=== PATIENT | male | born 1955 | race African-American/Black ===

== ENCOUNTER 2020-07-17 09:51 | Outpatient (CLI) | payer OTHER, SELFPAY ==
--- NOTE | ~2020-07-17 | CT_ITS ---
CT lung screening DATE: 07/17/2020 10:43 INDICATION: Lung cancer screening. Emphysema. TECHNIQUE: Axial CT images through the lungs without intravenous contrast material. Exam dose: 79.97 mGy-cm total exam DLP. COMPARISON: None FINDINGS: There is bilateral mild apical scarring. Moderately prominent emphysematous changes are noted, most prominent in the upper lobes, including bi lateral upper lobe and superior segment left lower lobe bullae. 7 mm groundglass density, right apical area (series 4 image 21) 1.7 mm nodular density, right upper lobe (series 4 image 60). 2 mm perihilar nodular density, right upper lobe (series 4 image 69) 3.4 mm pleura-based opacity, anterolateral right lower lobe (series 4 image 78). 4.5 mm right lower lobe noncalcified soft tissue nodule (series 4 image 83). 4.9 mm pleural-based nodule, left lower lobe (series 4 image 81) There are several small likely benign left greater fissural nodes. Normal heart size. No pericardial or pleural effusion. Normal size and homogeneous attenuation of the thyroid gland. No hilar or mediastinal mass lesion or lymphadenopathy. Thoracic aortic, great vessel and coronary artery calcifications. No pericardial or pleural effusion. Normal morphology of the adrenal glands. IMPRESSION: Lung RADS score 3: probably benign Recommendation: 6 month follow-up LDCT imaging Reviewed, dictated and finalized at [facility]. Reviewed, dictated and finalized at location A.
--- NOTE | ~2020-07-17 | US_ITS ---
EXAMINATION: US aorta [facility] DATE: 07/17/2020 10:39 INDICATION: Screening for abdominal aortic aneurysm with risk factors of cardiovascular disease, hype rtension, smoking and hypercholesterolemia. TECHNIQUE: Grayscale, color Doppler, and pulsed Doppler images of the aorta and common iliac arteries were obtained. COMPARISON: None. FINDINGS: The proximal aorta measures 2.4 x 2.8 cm. The mid aorta measures 2.1 x 2.1 cm. The distal aorta measu res 1.5 x 1.7 cm. The right common iliac artery measures 10 mm. The left common iliac artery measures 11 mm. IMPRESSION: 1. Normal caliber abdominal aorta. Reviewed, dictated and finalized at location [facility].
== END 2020-07-17 09:52 | disposition home or self-care (01) ==
PROVIDERS: PCP Family Medicine; Visit Provider Family Medicine
DX: Z12.2 Encounter for screening for malignant neoplasm of respiratory organs (principal); Z87.891 Personal history of nicotine dependence; R91.8 Other nonspecific abnormal finding of lung field
CPT/HCPCS: 71271; 76706

== ENCOUNTER → 2020-07-27 00:19 | Outpatient (CLI) | payer OTHER, SELFPAY ==
[2020-07-27 18:31] LABS: SARS-CoV-2 RNA PCR Negative
== END ==
PROVIDERS: PCP Family Medicine; Visit Provider Internal Medicine Gastroenterology
DX: Z01.812 Encounter for preprocedural laboratory examination (principal); Z20.822 Contact with and (suspected) exposure to COVID-19
CPT/HCPCS: C9803; U0003; U0005

== ENCOUNTER 2020-07-30 04:13 | Day surgery (SDC) | payer OTHER, SELFPAY ==
[2020-07-19 10:22] VITALS: BMI 25.2
[2020-07-30 06:47] VITALS: BP 137/84; PULSE 73; RESP 20; TEMP 36.2; O2SAT 96; BMI 25.2
[2020-07-30] MEDS: LACTATED RINGERS 1,000 ML 150 ML IV CONT (07:03)
--- NOTE | 2020-07-30 07:12 | P.PNAN_ITS ---
Anes - Initial Pre Proc Eval Procedure: Operation Date: 07/30/20 08:00 Proposed Procedures p Screening Colonoscopy - Moncho Quinn MD Date/Time: 07/30/20 07:12 Surgeon: Moncho Quinn MD Pre Op Diagnosis: Neoplasm Screening Patient Data Age: 64 Gender: M Height: 5 ft 6 in Weight: 70.9 kg Last Vital Signs Temp 97.1 F L 07/30/20 06:47 Pulse 73 07/30/20 06:47 Resp 20 07/30/20 06:47 BP 137/84 07/30/20 06:47 Pulse Ox 96 07/30/20 06:47 Allergies Allergy/AdvReac Type Severity Reaction Status Date / Time citric acid Allergy Mild Hives Verified 07/30/20 06:46 tomato Allergy Mild Hives Verified 07/30/20 06:46 [place] Allergy Mild Hives Uncoded 07/19/20 10:22 NKDA Allergy Unknown Unknown Uncoded 07/19/20 10:22 Home Medications Medication Instructions Recorded Confirmed Type allopurinol 300 mg PO EVERY OTHER DAY 07/19/20 07/30/20 History ibuprofen 600 mg PO DAILY PRN 07/19/20 07/19/20 History lisinopril-hydrochlorothiazide 1 tablet PO DAILY 07/19/20 07/30/20 History Patient hx anesthesia problems: none Family hx anesthesia problems: none PMFSH Past Medical History Medical History Essential (primary) hypertension Idiopathic gout Surgical History Surgical History No pertinent past surgical history Family History Family History Father Acute leukemia Mother Hypertension Social History Social History Smoking packs per day: 1 Smoking cigarettes per day: 20.0 Years smoked: 40 Smoking pack-years: 40.00 Smoking status: Current every day smoker Tobacco type: cigarettes Second hand tobacco smoke exposure: Yes Alcohol intake: current Substance use: never Substance use type: does not use Living arrangements: with family Spiritual care concerns: No Anes - Eval Final PreProcedure Day of Procedure 07/30/20 07:12 Patient weight: normal Heart: regular rate and rhythm Lungs: clear to auscultation Airway: Mallampati scale Neurological: alert and oriented Last oral intake: >/= 8 hours ASA classification: II Emergent: no Anesthetic plan: proceed Anesthesia type and monitoring: general GIVS and standard monitoring Informed Consent: The patient's anesthetic plan and its attendant risks and benefits were discussed with the patient/family/POA. Questions were solicited and answers provided to the satisfaction of the patient/family/POA.
--- NOTE | 2020-07-30 07:16 | PM.HPGS ---
History of Present Illness History of Present Illness Consent: Risks, benefits, and alternatives have been discussed and questions answered. Patient agrees to proceed with procedure. Chief complaint: Neoplasm Screening Narrative: Scott Streeter is a 64 year old male Referred for colon cancer screening. This is his 1st colonoscopy. Review of Systems Review of Systems: All systems reviewed & are unremarkable except as noted in HPI and below PMFSH Past Medical History Medical History Essential (primary) hypertension Idiopathic gout Surgical History Surgical History No pertinent past surgical history Family History Family History Father Acute leukemia Mother Hypertension Social History Social History Smoking packs per day: 1 Smoking cigarettes per day: 20.0 Years smoked: 40 Smoking pack-years: 40.00 Smoking status: Current every day smoker Tobacco type: cigarettes Second hand tobacco smoke exposure: Yes Alcohol intake: current Substance use: never Substance use type: does not use Living arrangements: with family Spiritual care concerns: No Meds Home Medications and Allergies Home Medications Medication Instructions Recorded Confirmed Type allopurinol 300 mg PO EVERY OTHER DAY 07/19/20 07/30/20 History ibuprofen 600 mg PO DAILY PRN 07/19/20 07/19/20 History lisinopril-hydrochlorothiazide 1 tablet PO DAILY 07/19/20 07/30/20 History Allergies Allergy/AdvReac Type Severity Reaction Status Date / Time citric acid Allergy Mild Hives Verified 07/30/20 06:46 tomato Allergy Mild Hives Verified 07/30/20 06:46 [place] Allergy Mild Hives Uncoded 07/19/20 10:22 NKDA Allergy Unknown Unknown Uncoded 07/19/20 10:22 Vital Signs Vital Signs - 24 hr 07/30/20 06:47 Temperature 36.2 C L Pulse Rate 73 Respiratory Rate 20 Blood Pressure 137/84 Pulse Oximetry 96 Exam Const: General: alert Orientation/consciousness: patient oriented x3 Resp: Auscultation: clear to auscultation bilaterally Cardio: Rhythm: regular rhythm GI: GI Palp: Yes Soft to palpation and No Tenderness to palpation present (GI) Neuro: General: patient oriented x3 Assessment and Plan Assessment and plan (1) Colon cancer screening: Code(s): Z12.11 - Encounter for screening for malignant neoplasm of colon Status: Acute Assessment and Plan: Colonoscopy with possible biopsy or polypectomy or cautery or injection of substances.
[2020-07-30 08:30] VITALS: BP 110/78; PULSE 63; RESP 29; O2SAT 100
[2020-07-30 08:40] VITALS: BP 158/91; PULSE 57; RESP 20; O2SAT 100
[2020-07-30 08:50] VITALS: BP 164/94; PULSE 56; RESP 21; O2SAT 100
== END 2020-07-30 09:08 | disposition home or self-care (01) ==
PROVIDERS: PCP Family Medicine; Visit Provider Internal Medicine Gastroenterology
PROC: 0DJD8ZZ Inspection of Lower Intestinal Tract, Via Natural or Artificial Opening Endoscopic (ICD-10-PCS; CPT 45378; principal; 2020-07-30 08:00)
DX: Z12.11 Encounter for screening for malignant neoplasm of colon (principal); I10 Essential (primary) hypertension; M10.9 Gout, unspecified; F17.210 Nicotine dependence, cigarettes, uncomplicated
CPT/HCPCS: G0121; C9803; J2001; J2704; J7120; U0003; U0005

== ENCOUNTER 2020-10-11 06:55 | Outpatient (CLI) | payer OTHER, SELFPAY ==
--- NOTE | ~2020-10-11 | NM_ITS ---
EXAMINATION: NM bone scan whole body DATE: 10/11/2020 12:23 INDICATION: Prostate cancer TECHNIQUE: 27.9 mCi Tc-99m HDP was administered intravenously. Delayed whole-body scintigrams were o btained. COMPARISON: CT abdomen and pelvis dated 10/11/2020, CT chest dated 07/17/2020 FINDINGS: Likely degenerative joint centered uptake at the right elbow and bilateral wrists. Mild S-shaped curv ature of the spine with mild thoracic levocurvature and mild lumbar dextrocurvature. Mild likely dege nerative disc centered uptake at C7-T1 and L5-S1 with associated degenerative endplate changes seen o n prior CT. Millimeters suspicious foci of abnormal bone uptake to suggest metastatic disease. IMPRESSION: 1. No evident metastatic disease. Reviewed, dictated and finalized at location [facility].
--- NOTE | ~2020-10-11 | XR_ITS ---
EXAMINATION: XR chest 2V 10/11/2020 07:17 INDICATION: Prostate cancer PROCEDURE: PA and lateral views of the chest COMPARISON: No prior studies for comparison. FINDINGS: The lungs are clear. The cardiomediastinal silhouette is within normal limits. There are no pleural effusions. There is no pneumothorax suspected. There are bilateral nipple shadows. The l ungs are hyperinflated which is consistent with, but not diagnostic of chronic obstructive pulmonary disease. IMPRESSION: 1: NO ACUTE CARDIOPULMONARY DISEASE. Reviewed, dictated and finalized at location [facility].
--- NOTE | ~2020-10-11 | CT_ITS ---
EXAMINATION: CT abdomen pelvis w con EXAM DATE: 10/11/2020 07:33 INDICATION: Prostate cancer. TECHNIQUE: Spiral CT of the abdomen and pelvis was performed following intravenous injection of 100 m L Omnipaque 350. Axial, coronal and sagittal images of the abdomen and pelvis were reviewed. The do se-length product (DLP) for this examination was 337.37 mGy-cm. The exposure was tailored according to patient size (auto mA exposure control), and iterative reconstruction (ASIR) was used as additiona l dose reduction technique. Correlation is made to bone scan obtained same date. FINDINGS: The liver, spleen, adrenal glands and pancreas are unremarkable. Gallbladder is unremarkab le. No biliary obstruction. Portal and splenic veins are patent. Kidneys enhance symmetrically. T here is no hydronephrosis. There is mild prostatomegaly. The bladder is unremarkable. There is no retroperitoneal or pelvic lymphadenopathy. The appendix is normal. The stomach and small bowel are unremarkable. There is expected amount of c olonic stool. No free intraperitoneal gas. The heart is normal in size. There are no pericardial or pleural effusions. Mild basilar emphysema. Moderate to severe disc disease L3-4 and L5-S1. Ther e are no osteoblastic or osteolytic lesions identified. IMPRESSION: 1. No evidence of metastatic disease. 2. Mild prostatomegaly. Reviewed, dictated and finalized at location B.
[2020-10-11 07:25] LABS: Estimated Glomerular Filt Rate > 60
== END 2020-10-11 06:56 | disposition home or self-care (01) ==
PROVIDERS: PCP Family Medicine; Visit Provider Urology
DX: C61 Malignant neoplasm of prostate (principal)
CPT/HCPCS: 71046; 74177; 78306; A9561; Q9967

== ENCOUNTER 2020-12-16 06:58 | Outpatient (CLI) | payer OTHER, SELFPAY ==
--- NOTE | ~2020-12-16 | MR_ITS ---
EXAMINATION: MR pelvis wo/w con DATE: 12/16/2020 08:15 INDICATION: Malignant neoplasm of the prostate TECHNIQUE: Magnetic resonance imaging (MRI) of the pelvis w without and with 13 mL Multihance as perf ormed without intravenous contrast. [place] sequences of the pelvis included axial and coronal T2-w eighted SS FSE, axial, sagittal and coronal 2D FIESTA, axial 2D FIESTA FS, axial SSFSE-IR ELKE, axial dual-echo T1-weighted FSPGR, axial and coronal T1 weighted LAVA, 3D axial T2 Cube, axial diffusion-w eighted SE with apparent diffusion coefficient (ADC) maps. Postcontrast sequences included a time co urse axial T1-weighted LAVA and sagital and coronal T1-weighted LAVA. COMPARISON: CT dated 10/11/2020 FINDINGS: Prostate measures 4.6 x 3.6 x 4.5 cm. No evident extracapsular soft tissue in the surrounding fat. Co llection of relatively homogeneous T2 hyperintense material likely representing hydrogel situated bet ween the prostate and the anterior perirectal fat. The collection measures 3.3 cm craniocaudally, 2.7 cm left right and 1.3 cm in maximal thickness. Bladder and visualized bowels are unremarkable. No pa thologically enlarged pelvic or inguinal lymphadenopathy. Moderate to severe lower lumbar spondylosis . Normal bone marrow signal with no suspicious bone lesions identified. IMPRESSION: 1. No evident metastatic disease in the pelvis. Reviewed, dictated and finalized at location [facility].
[2020-12-16 07:33] LABS: Estimated Glomerular Filt Rate > 60
== END 2020-12-16 06:59 | disposition home or self-care (01) ==
PROVIDERS: PCP Family Medicine; Visit Provider Radiology Radiation Oncology
DX: C61 Malignant neoplasm of prostate (principal)
CPT/HCPCS: 72197; A9577

== ENCOUNTER 2021-06-28 14:10 | Outpatient (CLI) | payer OTHER, SELFPAY ==
[2021-06-28 14:34] LABS: Basophils Percent Auto 0.7 % (0.2-1.2); Eosinophils Absolute Auto 0.2 K/mm3 (0-0.3); Eosinophils Percent Auto 3.8 % (0-4.4); Hematocrit 34.1 % (42.0-52.0); Hemoglobin 11.2 g/dL (14.0-18.0); Immature Granulocyte Absolute 0.01 K/mm3 (0.00-0.031); Immature Granulocyte Percent A 0.2 % (0-0.5); Lymphocytes Absolute Auto 1.05 K/mm3 (0.9-3.2); Lymphocytes Percent Auto 24.8 % (18.3-44.2); Mean Corpuscular HGB Conc 32.8 g/dl (32-36); Mean Corpuscular Hemoglobin 28.9 pg (26-34); Mean Corpuscular Volume 88.1 fl (80-100); Mean Platelet Volume 8.3 fl (7.4-10.4); Monocytes Absolute Auto 0.3 K/mm3 (0.1-0.6); Monocytes Percent Auto 7.8 % (2.6-8.5); Neutrophils Absolute Auto 2.7 K/mm3 (1.3-6.7); Neutrophils Percent Auto 62.7 % (45.5-73.1); Platelet Count Result 278 k/mm3 (150-375); Red Blood Count 3.87 M/mm3 (4.6-6.20); Red Cell Distribution Width 13.2 % (11.5-14.5); White Blood Count 4.2 K/mm3 (4.5-10.0)
[2021-06-28 14:47] LABS: Alanine Aminotransferase 20 U/L (4-50); Albumin Level 4.5 g/dL (3.5-5.1); Alkaline Phosphatase 130 U/L (38-126); Anion Gap 6 mmol/L (8-16); Aspartate Amino Transferase 32 U/L (17-59); Bilirubin,Total 0.3 mg/dL (0.2-1.3); Blood Urea Nitrogen 23 mg/dL (9-20); Calcium 9.5 mg/dL (8.4-10.2); Carbon Dioxide 26 mmol/L (22-30); Chloride 107 mmol/L (98-107); Cholesterol 172 mg/dL (0-200); Estimated Glomerular Filt Rate > 60; Glucose 113 mg/dL (65-110); HDL Direct 41 mg/dL; Potassium 3.7 mmol/L (3.4-5.0); Sodium 139 mmol/L (137-145); Triglycerides 126 mg/dL (<150)
[2021-06-28 14:58] LABS: LDL Cholesterol Direct 99 mg/dL
== END 2021-06-28 14:11 | disposition home or self-care (01) ==
PROVIDERS: PCP Family Medicine; Visit Provider Family Medicine
DX: E78.5 Hyperlipidemia, unspecified (principal); E55.9 Vitamin D deficiency, unspecified; I10 Essential (primary) hypertension; Z00.00 Encounter for general adult medical examination without abnormal findings; Z51.81 Encounter for therapeutic drug level monitoring; Z79.899 Other long term (current) drug therapy; R73.9 Hyperglycemia, unspecified
CPT/HCPCS: 36415; 80053; 80061; 82306; 83036; 84443; 85025

== ENCOUNTER 2021-07-26 06:56 | Outpatient (CLI) | payer OTHER, SELFPAY ==
--- NOTE | ~2021-07-26 | CT_ITS ---
EXAMINATION:CT lung screening DATE: 07/26/2021 07:12 INDICATION: Encounter for screening for malignant neoplasm of respiratory organs. Current smoker with 34 pack year history. TECHNIQUE: Computed tomography (CT) of the chest was performed without intravenous contrast. Automate d exposure control and iterative reconstruction technique were employed. The dose-length product (DLP ) was 84.45 mGy-cm. COMPARISON: Chest CT 07/17/2020 FINDINGS: There is severe emphysema. There is stable mild scarring at the lung apices. Again seen is a 5 mm nodule in right lower lobe. Again seen is a 6 mm nodule in left lower lobe. There are nodules at left major fissure measuring up to 5 mm without change. No pleural effusion. The heart size is nor mal. There are coronary artery calcifications. There are calcifications of aortic valve. No pericardi al effusion. There is mild thoracic spondylosis. IMPRESSION: 1. Lung-RADS category 2: Benign appearance or behavior. Continue annual screening with noncontrast lo w-dose chest CT in 12 months. Reviewed, dictated and finalized at location [facility]. IMPRESSION: 1. Lung-RADS category 2: Benign appearance or behavior. Continue annual screeni ng with noncontrast low-dose chest CT in 12 months.
== END 2021-07-26 06:57 | disposition home or self-care (01) ==
LOC: ANHIMG 06:59
PROVIDERS: PCP Family Medicine; Visit Provider Family Medicine
DX: Z12.2 Encounter for screening for malignant neoplasm of respiratory organs (principal); Z87.891 Personal history of nicotine dependence
CPT/HCPCS: 71271

== ENCOUNTER 2022-07-31 07:51 | Outpatient (CLI) | payer OTHER, SELFPAY ==
[2022-07-31 12:38] LABS: Alanine Aminotransferase 32 U/L (6-50); Albumin Level 4.6 g/dL (3.5-5.1); Alkaline Phosphatase 89 U/L (38-126); Anion Gap 9 mmol/L (8-16); Aspartate Amino Transferase 32 U/L (17-59); Basophils Absolute Auto 0.1 K/mm3 (0.0-0.1); Bilirubin,Total 0.6 mg/dL (0.2-1.3); Blood Urea Nitrogen 13 mg/dL (9-20); Calcium 9.3 mg/dL (8.4-10.2); Carbon Dioxide 27 mmol/L (22-30); Chloride 101 mmol/L (98-107); Cholesterol 171 mg/dL (0-200); Eosinophils Absolute Auto 0.1 K/mm3 (0-0.3); Eosinophils Percent Auto 2.9 % (0-4.4); Estimated Glomerular Filt Rate > 60; Glucose 93 mg/dL (65-110); HDL Direct 38 mg/dL; Hematocrit 39.9 % (42.0-52.0); Hemoglobin 13.5 g/dL (14.0-18.0); Immature Granulocyte Absolute 0.01 K/mm3 (0.00-0.031); Immature Granulocyte Percent A 0.2 % (0-0.5); Lymphocytes Absolute Auto 1.53 K/mm3 (0.9-3.2); Lymphocytes Percent Auto 31.5 % (18.3-44.2); Mean Corpuscular HGB Conc 33.8 g/dl (32-36); Mean Corpuscular Hemoglobin 30.4 pg (26-34); Mean Corpuscular Volume 89.9 fl (80-100); Mean Platelet Volume 8.8 fl (7.4-10.4); Monocytes Absolute Auto 0.4 K/mm3 (0.1-0.6); Neutrophils Absolute Auto 2.7 K/mm3 (1.3-6.7); Neutrophils Percent Auto 56.4 % (45.5-73.1); Platelet Count Result 301 k/mm3 (150-375); Potassium 3.7 mmol/L (3.4-5.0); Red Blood Count 4.44 M/mm3 (4.6-6.20); Red Cell Distribution Width 12.5 % (11.5-14.5); Sodium 137 mmol/L (137-145); Triglycerides 197 mg/dL (<150); Uric Acid 6.7 mg/dL (3.5-8.5); White Blood Count 4.9 K/mm3 (4.5-10.0)
[2022-07-31 12:49] LABS: LDL Cholesterol Direct 93 mg/dL
[2022-07-31 13:52] LABS: Hemoglobin A1C 5.6 % (<5.7)
== END 2022-07-31 07:52 | disposition home or self-care (01) ==
LOC: ANHGOSHLAB 07:52
PROVIDERS: PCP Family Medicine; Visit Provider Family Medicine
DX: R73.03 Prediabetes (principal); Z13.220 Encounter for screening for lipoid disorders; I10 Essential (primary) hypertension; E53.8 Deficiency of other specified B group vitamins; E55.9 Vitamin D deficiency, unspecified; M10.00 Idiopathic gout, unspecified site
CPT/HCPCS: 36415; 80053; 80061; 82306; 82607; 83036; 84443; 84550; 85025

== ENCOUNTER 2023-01-30 09:36 | Outpatient (CLI) | payer OTHER, SELFPAY ==
[2023-01-30 19:38] LABS: Alanine Aminotransferase 41 U/L (6-50); Albumin Level 4.7 g/dL (3.5-5.1); Alkaline Phosphatase 104 U/L (38-126); Anion Gap 8 mmol/L (8-16); Aspartate Amino Transferase 46 U/L (17-59); Bilirubin,Total 0.4 mg/dL (0.2-1.3); Blood Urea Nitrogen 22 mg/dL (9-20); Calcium 9.8 mg/dL (8.4-10.2); Carbon Dioxide 24 mmol/L (22-30); Chloride 102 mmol/L (98-107); Estimated Glomerular Filt Rate > 60; Glucose 101 mg/dL (65-110); Potassium 3.8 mmol/L (3.4-5.0); Sodium 134 mmol/L (137-145)
[2023-01-30 20:09] LABS: Hemoglobin A1C 5.8 % (<5.7)
== END 2023-01-30 09:37 | disposition home or self-care (01) ==
LOC: ANHGOSHLAB 09:37
PROVIDERS: PCP Family Medicine; Visit Provider Family Medicine
DX: R73.03 Prediabetes (principal); I10 Essential (primary) hypertension
CPT/HCPCS: 36415; 80053; 83036

== ENCOUNTER 2024-02-27 08:40 | Outpatient (CLI) | payer OTHER, SELFPAY ==
[2024-02-27 12:49] LABS: Basophils Absolute Auto 0.1 K/mm3 (0.0-0.1); Eosinophils Absolute Auto 0.2 K/mm3 (0-0.3); Eosinophils Percent Auto 3.1 % (0-4.4); Hematocrit 41.6 % (42.0-52.0); Hemoglobin 14.1 g/dL (14.0-18.0); Immature Granulocyte Absolute 0.01 K/mm3 (0.00-0.031); Immature Granulocyte Percent A 0.2 % (0-0.5); Lymphocytes Absolute Auto 1.61 K/mm3 (0.9-3.2); Lymphocytes Percent Auto 31.3 % (18.3-44.2); Mean Corpuscular HGB Conc 33.9 g/dl (32-36); Mean Corpuscular Hemoglobin 30.7 pg (26-34); Mean Corpuscular Volume 90.4 fl (80-100); Mean Platelet Volume 8.6 fl (7.4-10.4); Monocytes Absolute Auto 0.3 K/mm3 (0.1-0.6); Monocytes Percent Auto 6.6 % (2.6-8.5); Neutrophils Percent Auto 57.8 % (45.5-73.1); Platelet Count Result 270 k/mm3 (150-375); White Blood Count 5.1 K/mm3 (4.5-10.0)
[2024-02-27 13:16] LABS: Vitamin D 25 Hydroxy 56.4 ng/mL
[2024-02-27 13:24] LABS: Hemoglobin A1C 6.1 % (<5.7)
[2024-02-27 13:37] LABS: Alanine Aminotransferase 45 U/L (6-50); Alkaline Phosphatase 79 U/L (38-126); Anion Gap 11 mmol/L (4-12); Aspartate Amino Transferase 53 U/L (17-59); Bilirubin,Total 0.7 mg/dL (0.2-1.3); Blood Urea Nitrogen 24 mg/dL (9-20); Calcium 9.7 mg/dL (8.4-10.2); Carbon Dioxide 23 mmol/L (22-30); Chloride 105 mmol/L (98-107); Cholesterol 193 mg/dL (0-200); Estimated Glomerular Filt Rate > 60; Glucose 90 mg/dL (65-110); HDL Direct 49 mg/dL; Potassium 4.1 mmol/L (3.4-5.0); Sodium 139 mmol/L (137-145); Triglycerides 176 mg/dL (<150)
[2024-02-27 13:48] LABS: LDL Cholesterol Direct 96 mg/dL
[2024-02-27 14:06] LABS: Prostate Specific Antigen 0.2 ng/mL (< OR = 4.0)
[2024-02-27 14:24] LABS: Vitamin B12 > 1000.0 pg/mL (239-931)
== END 2024-02-27 08:41 | disposition home or self-care (01) ==
LOC: ANHGOSHLAB 08:41
PROVIDERS: PCP Family Medicine; Visit Provider Nurse Practitioner Family
DX: R73.03 Prediabetes (principal); E78.5 Hyperlipidemia, unspecified; I10 Essential (primary) hypertension; E03.9 Hypothyroidism, unspecified; E55.9 Vitamin D deficiency, unspecified; E53.8 Deficiency of other specified B group vitamins; Z12.5 Encounter for screening for malignant neoplasm of prostate
CPT/HCPCS: 36415; 80053; 80061; 82306; 82607; 83036; 84153; 84443; 85025; G0103

== ENCOUNTER 2024-03-07 07:57 | Outpatient (CLI) | payer OTHER, SELFPAY ==
--- NOTE | ~2024-03-07 | CT_ITS ---
CT Scan of the Chest without Contrast: Clinical Indication: Lung cancer screening, nicotine dependence Technique: Contiguous sections were acquired throughout the chest without intravenous contrast. Dose reduction technique was used on this scan by utilizing automated exposure control and iterative recon struction technique. The dose-length product (DLP) was 83.96 mGy-cm. Findings: There is no evidence of any significant mediastinal, hilar or axillary lymphadenopathy. Coronary calc ifications are present. There is no evidence of pleural or pericardial effusion. There is severe emphysema. 5 mm semisolid lesion noted at the right lung apex (axial image 22). Images through the upper abdomen reveal no abnormalities. Impression: Lung RADS 2: Benign appearance. 12 month follow-up screening CT advised. Reviewed, dictated and finalized at location . [employer] Impression: Lung RADS 2: Benign appearance. 12 month follow-up screening CT advised.
== END 2024-03-07 07:58 | disposition home or self-care (01) ==
PROVIDERS: PCP Family Medicine; Visit Provider Nurse Practitioner Family
DX: Z12.2 Encounter for screening for malignant neoplasm of respiratory organs (principal); Z87.891 Personal history of nicotine dependence
CPT/HCPCS: 71271

== ENCOUNTER 2025-02-11 08:15 | Outpatient (CLI) | payer OTHER, SELFPAY ==
[2025-02-11 12:54] LABS: Hematocrit 39.5 % (42.0-52.0); Hemoglobin 13.0 g/dL (14.0-18.0); Immature Granulocyte Percent A 0.0 % (0-0.5); Lymphocytes Absolute Auto 1.24 K/mm3 (0.9-3.2); Mean Corpuscular HGB Conc 32.9 g/dl (32-36); Mean Corpuscular Hemoglobin 30.4 pg (26-34); Mean Corpuscular Volume 92.3 fl (80-100); Nucleated Red Blood Cells Absolute Auto 0.000 K/mm3 (0.0-0.012); Nucleated Red Blood Cells Perc 0.0 % (0.0-0.2); Platelet Count Result 263 k/mm3 (150-375); Red Blood Count 4.28 M/mm3 (4.6-6.20); White Blood Count 3.7 K/mm3 (4.5-10.0)
[2025-02-11 13:06] LABS: Alanine Aminotransferase 22 U/L (6-50); Albumin Level 4.4 g/dL (3.5-5.1); Alkaline Phosphatase 78 U/L (38-126); Anion Gap 8 mmol/L (4-12); Aspartate Amino Transferase 50 U/L (17-59); Bilirubin,Total 0.5 mg/dL (0.2-1.3); Blood Urea Nitrogen 15 mg/dL (9-20); Calcium 9.5 mg/dL (8.4-10.2); Carbon Dioxide 27 mmol/L (22-30); Chloride 102 mmol/L (98-107); Cholesterol 148 mg/dL (0-200); Estimated Glomerular Filt Rate > 60; Glucose 74 mg/dL (65-110); HDL Direct 58 mg/dL; Potassium 4.1 mmol/L (3.4-5.0); Sodium 137 mmol/L (137-145); Total Protein 8.0 g/dL (6.3-8.2); Triglycerides 94 mg/dL (<150)
[2025-02-11 13:34] LABS: Thyroid Stimulating Hormone Reflex 1.590 uIU/mL (0.465-4.68)
[2025-02-11 13:41] LABS: Prostate Specific Antigen 0.2 ng/mL (< OR = 4.0)
[2025-02-11 18:35] LABS: Hemoglobin A1C 5.3 % (<5.7)
== END 2025-02-11 08:16 | disposition home or self-care (01) ==
PROVIDERS: PCP Family Medicine; Visit Provider Nurse Practitioner Family
DX: E78.5 Hyperlipidemia, unspecified (principal); R73.03 Prediabetes; I10 Essential (primary) hypertension; Z12.5 Encounter for screening for malignant neoplasm of prostate
CPT/HCPCS: 36415; 80053; 80061; 83036; 84153; 84443; 85025; G0103

== ENCOUNTER 2025-03-09 06:56 | Outpatient (CLI) | payer OTHER, SELFPAY ==
--- NOTE | ~2025-03-09 | CT_ITS ---
EXAMINATION:CT lung screening DATE: 03/09/2025 07:07 INDICATION: Personal history of nicotine dependence. TECHNIQUE: Computed tomography (CT) of the chest was performed without intravenous contrast. Automated exposure control and iterative reconstruction technique were employed. The dose-length product (DLP) was 67.96 mGy-cm. COMPARISON: Chest CT 03/07/2024 FINDINGS: There is moderate emphysema. There is mild scarring at the lung apices. There is a stable 6 mm part-solid nodule in right upper lobe. There are stable 5 mm and 3 mm nodules in right lower lobe. There is a stable 4 mm nodule in left lower lobe. There are stable small nodules at left major fissure. No pleural effusion. The heart size is normal. There are coronary artery calcifications. There are calcifications of the aortic valve. No pericardial effusion. There is bilateral gynecomastia. There is moderate thoracic spondylosis. IMPRESSION: 1. Lung-RADS category 2: Benign appearance or behavior. Continue annual screening with noncontrast low-dose chest CT in 12 months. Reviewed, dictated and finalized at location E. ER GAS IMPRESSION: 1. Lung-RADS category 2: Benign appearance or behavior. Continue annual screeni ng with noncontrast low-dose chest CT in 12 months.
== END 2025-03-09 06:57 | disposition home or self-care (01) ==
PROVIDERS: PCP Family Medicine; Visit Provider Family Medicine
DX: Z12.2 Encounter for screening for malignant neoplasm of respiratory organs (principal); Z87.891 Personal history of nicotine dependence
CPT/HCPCS: 71271